=== PATIENT | male | born 1985 | race Two or more races ===

== ENCOUNTER 2016-09-16 12:20 | Emergency (ER) | payer MEDICAID ==
[~2016-09-16] VITALS: Ht 188 cm; Wt 84.8 kg
[2016-09-16] MEDS ORDERED: traMADol 50mg tab ORAL ONE (13:30)
[2016-09-16] MEDS ORDERED: IBUPROFEN600 MG ORAL (14:19)
[2016-09-16 14:35] VITALS: BP 121/85
[2016-09-16 14:38] VITALS: BP 121/85
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
--- NOTE | 2016-09-17 08:39 | Diagnostic Imaging Report ---
Indication: PAIN Technique: 3 views of the left elbow Comparison: none Findings: No acute fractures. No dislocations. No joint effusion. Joint spaces are preserved. Normal mineralization. No radiopaque foreign body. Impression: Negative
--- NOTE | 2016-09-17 08:39 | Diagnostic Imaging Report ---
Indication: PAIN, status post fall one week ago Technique: 3 views right hand Comparison: none Findings: There is a fracture deformity, healed of the fifth metacarpal. No acute fractures. No dislocations. The joint spaces are preserved. Impression: No acute bony trauma
== END 2016-09-16 14:38 | disposition home or self-care (01) ==
LOC: EMR 13:19
DX: S50.02XA Contusion of left elbow, initial encounter (principal); V28.0XXA Motorcycle driver injured in noncollision transport accident in nontraffic accident, initial encounter; Y93.9 Activity, unspecified; Y99.9 Unspecified external cause status; M79.641 Pain in right hand; M25.522 Pain in left elbow
CPT/HCPCS: 99284